=== PATIENT | male | born 2000 | race Two or more races ===

== ENCOUNTER 2024-01-05 04:15 | Emergency (ER) | payer SELFPAY ==
[~2024-01-05] VITALS: Ht 170.2 cm; Wt 73.0 kg
[2024-01-05 04:18] VITALS: BP 132/82; PULSE 70; RESP 16; TEMP 98.4; O2SAT 100
[2024-01-05] MEDS ORDERED: TRAZ-251 MT (04:25)
== END 2024-01-05 06:54 | disposition home or self-care (01) ==
LOC: ER 04:15
DX: F15.93 Other stimulant use, unspecified with withdrawal (principal); E11.9 Type 2 diabetes mellitus without complications
CPT/HCPCS: 99283